=== PATIENT | male | born 1960 | race African-American/Black ===

== ENCOUNTER 2020-07-15 11:40 | Emergency (ER) | payer OTHER ==
[~2020-07-15] VITALS: Ht 188 cm; Wt 90.7 kg
[2020-07-15] MEDS ORDERED: CLINDAMYCIN HC300 MG PO (12:27)
[2020-07-15] MEDS ORDERED: IBUPROFEN 800800 M1 PO (12:27)
[2020-07-15] MEDS ORDERED: NORCO 5-325 TA1 EAC2 PO (12:27)
[2020-07-15 12:36] VITALS: BP 136/72
== END 2020-07-15 12:37 | disposition home or self-care (01) ==
LOC: M.ERS 11:40
DX: K04.7 Periapical abscess without sinus (principal)

== ENCOUNTER 2020-11-05 17:51 | Emergency (ER) | payer OTHER ==
[~2020-11-05] VITALS: Ht 188 cm; Wt 90.7 kg
[~2020-11-05 17:51] MED LIST: CLINDAMYCIN HC300 MG PO; IBUPROFEN 800800 M1 PO; NORCO 5-325 TA1 EAC2 PO
[2020-11-05 18:16] LABS: ABSOLUTE BASOPHILS 0.1 thou/uL (0.0-0.2); ABSOLUTE EOSINOPHILS 0.2 thou/uL (0.0-0.7); ABSOLUTE LYMPHOCYTES 3.1 thou/uL (0.8-5.3); ABSOLUTE MONOCYTES 0.9 thou/uL (0.0-1.2); ABSOLUTE NEUTROPHILS 3.9 thou/uL (1.6-8.1); BASOPHILS 0.8 %; EOSINOPHILS 2.5 %; HEMATOCRIT 37.8 % (42.0-52.0); HEMOGLOBIN 12.2 gm/dL (14.0-18.0); LYMPHOCYTES 38.4 %; MCH 25.1 pg (26.0-34.0); MCHC 32.2 g/dL (28.0-37.0); MONOCYTES 10.6 %; MPV 7.3 fl. (7.2-11.1); NUCLEATED RBCS 0 /100WBC; PLATELET COUNT* 311 thou/uL (150-400); POLYS 47.7 %; RBC 4.85 mil/uL (4.50-6.00); RDW-CV 13.2 % (10.5-14.5); WBC 8.1 thou/uL (4.0-11.0)
[2020-11-05 18:29] LABS: CALCIUM 8.7 mg/dL (8.5-10.1); CREATININE 1.2 mg/dL (0.6-1.3); POTASSIUM 3.5 mmol/L (3.5-5.1)
[2020-11-05 18:32] LABS: APTT 22.3 Seconds (25.0-31.3); INR 1.1; PROTIME 11.5 Seconds (9.20-11.50)
[2020-11-05 18:33] LABS: ALBUMIN 3.6 g/dL (3.4-5.0); TOTAL BILIRUBIN 0.9 mg/dL (<0.1-1.0); TOTAL PROTEIN 7.2 g/dL (6.4-8.2)
[2020-11-05 21:16] VITALS: BP 122/64
--- NOTE | 2020-11-06 11:09 | EKG ---
[place] [address] ELECTROCARDIOGRAM REPORT Name: RAFAL COSME Room: [facility]#: [id number] Admission: 11/05/20 Attend Phys: Discharge: 11/05/20 Date of : 62 Date of Service: 11/05/20 1755 Report #: [id number] THIS REPORT FOR: //name// [facility] ED Test Date: 2020-11-05 Test Time: 17:55:41 Pat Name: RAFAL COSME Department: Room: Gender: Health Information Director: CCD : 1960 Requested By: Paul Morgan Order Number: [id number] MD: Chase Mariscal Measurements Intervals [place] Rate: 62 P: 17 [place]: 194 QRS: 37 QRSD: 81 T: 40 QT: 385 QTc: 391 Interpretive Statements Sinus rhythm Minimal ST elevation, anterior leads No previous ECG available for comparison Electronically Signed On 11-06-2020 11:08:54 CDT by Chase Mariscal [email or web address] <ELECTRONICALLY SIGNED> By: Chase Mariscal MD, [facility] 11/06/20 1108 1755 175 Chase Mariscal MD, [facility] /EPI
== END 2020-11-05 21:16 | disposition home or self-care (01) ==
LOC: M.ERS 17:51
PROVIDERS: Family Medicine
DX: R55 Syncope and collapse (principal); F17.210 Nicotine dependence, cigarettes, uncomplicated; Z88.0 Allergy status to penicillin